=== PATIENT | female | born 1960 | race African-American/Black ===

== ENCOUNTER 2016-08-23 20:50 | Emergency (ER) | payer BC ==
[~2016-08-23] VITALS: Ht 160 cm; Wt 141.5 kg
--- NOTE | ~2016-08-23 | EKG ---
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
[~2016-08-23 20:50] MED LIST: FLEXERIL PO; NOHOMEMEDICATIONS; PERCOCET 5-3251 EACH PO
[2016-08-23] MEDS ORDERED: COZAAR 50 MG TA50 M2 PO (20:57)
[2016-08-23] MEDS ORDERED: METFORMIN HCL500 MG PO (20:58)
[2016-08-23] MEDS ORDERED: LIPITOR10 MG PO (21:03)
[2016-08-23 21:10] LABS: URINE BILIRUBIN NEGATIVE (Negative); URINE BLOOD 2+ (Negative); URINE COLOR YELLOW; URINE GLUCOSE-RANDOM* 2+ (Negative); URINE KETONES TRACE (Negative); URINE LEUKOCYTES-REFLEX NEGATIVE (Negative); URINE PROTEIN (DIPSTICK) 1+ (Negative); URINE UROBILINOGEN 0.2 E.U./dl (0.2-1.0)
[2016-08-23 21:15] LABS: ABSOLUTE NEUTROPHILS 6.4 thou/uL (1.4-8.2); EOSINOPHILS 0.6 % (0.0-3.0); HEMOGLOBIN 14.9 gm/dL (12.0-15.0); LYMPHOCYTES 29.7 % (24.0-44.0); MCH 29.8 pg (26.0-34.0); MCHC 34.6 g/dL (28.0-37.0); MCV 86.2 fL (80.0-100.0); MONOCYTES 5.5 % (1.0-8.0); PLATELET COUNT 324 thou/uL (150-400); POLYS 63.2 % (36.0-66.0); RBC 4.99 mil/uL (4.20-5.00); RDW 13.5 % (10.5-14.5); WBC 10.2 thou/uL (4.0-11.0)
[2016-08-23 21:17] LABS: MANUAL DIFF NO
[2016-08-23 21:19] LABS: SQUAMOUS >10 Many /LPF (0-3)
[2016-08-23 21:20] LABS: CASTS None Seen /LPF (None Seen); CRYSTALS None Seen /LPF (None Seen); URINE RBC 3-10 Few /HPF (0-2); URINE WBC-REFLEX 0-5 Rare /HPF (0-5)
[2016-08-23 21:25] LABS: ANION GAP 10 mmol/L (7-16); BUN 12 mg/dL (7-18); CALCIUM 9.9 mg/dL (8.5-10.1); CHLORIDE 98 mmol/L (98-107); CO2 25 mmol/L (21-32); CREATININE 1.4 mg/dL (0.6-1.3); GLUCOSE 428 mg/dL (70-99); SODIUM 133 mmol/L (136-145)
[2016-08-23 21:32] LABS: ALKALINE PHOSPHATASE 136 U/L (46-116); SGPT 28 U/L (30-65); TOTAL BILIRUBIN 0.7 mg/dL (<0.1-1.0); TOTAL PROTEIN 8.1 g/dL (6.4-8.2); TROPONIN-I < 0.04 ng/mL (<0.04-0.07)
[2016-08-23 21:40] LABS: ABG COMMENT RN DRAW; ABG SAMPLE TYPE VENOUS; BE(vivo) 1.4 mmol/L (-2 to +3); HCO3 26.7 mmol/L (22.0-26.0); O2(CT) 13.8 mL/dL (15.0-23.0); O2Hb VENOUS 65.7 (65.0-85.0); PCO2 VENOUS 44.7 mmHg (41.0-51.0); PO2 VENOUS 33.9 mmHg (35.0-45.0); STICK SITE LINE; sO2 VENOUS 64.5 % (65.0-85.0); tCO2 28.1 mmol/L (24.0-30.0)
[2016-08-23 21:43] LABS: SGOT 18 U/L (15-37)
[2016-08-24 00:03] VITALS: BP 120/60
== END 2016-08-24 00:12 | disposition home or self-care (01) ==
LOC: ER 20:50
PROVIDERS: Emergency Medicine
DX: R73.9 Hyperglycemia, unspecified (principal); E86.0 Dehydration; Z90.89 Acquired absence of other organs

== ENCOUNTER 2019-02-06 17:48 | Emergency (ER) | payer BC ==
[~2019-02-06] VITALS: Ht 160 cm; Wt 136.1 kg
[~2019-02-06 17:48] MED LIST changes: +COZAAR 50 MG TA50 M2 PO; +LIPITOR10 MG PO; +METFORMIN HCL500 MG PO
[2019-02-06 19:20] LABS: ANION GAP 11 mmol/L (7-16); BUN 14 mg/dL (7-18); CALCIUM 9.6 mg/dL (8.5-10.1); CHLORIDE 102 mmol/L (98-107); CO2 24 mmol/L (21-32); CREATININE 0.9 mg/dL (0.6-1.0); GLUCOSE 87 mg/dL (74-106); POTASSIUM 4.8 mmol/L (3.5-5.1); SODIUM 137 mmol/L (136-145)
[2019-02-06 19:30] LABS: ALBUMIN 4.1 g/dL (3.4-5.0); MAGNESIUM 2.1 mg/dL (1.8-2.4); SGOT 21 U/L (15-37); SGPT 22 U/L (30-65); TOTAL BILIRUBIN 1.1 mg/dL (<0.1-1.0); TOTAL PROTEIN 7.7 g/dL (6.4-8.2); TROPONIN-I <0.06 ng/mL (<0.06)
[2019-02-06 22:24] LABS: ABSOLUTE NEUTROPHILS 4.3 thou/uL (1.4-8.2); BASOPHILS 0.6 % (0.0-2.0); EOSINOPHILS 1.1 % (0.0-3.0); HEMATOCRIT 41.6 % (37.0-47.0); HEMOGLOBIN 13.6 gm/dL (12.0-15.0); LYMPHOCYTES 28.6 % (24.0-44.0); MCH 29.6 pg (26.0-34.0); MCHC 32.7 g/dL (28.0-37.0); MCV 90.5 fL (80.0-100.0); MONOCYTES 7.9 % (1.0-8.0); PLATELET COUNT 283 thou/uL (150-400); POLYS 61.8 % (36.0-66.0); RBC 4.59 mil/uL (4.20-5.00); RDW 13.8 % (10.5-14.5)
[2019-02-06 22:54] VITALS: BP 137/72
--- NOTE | 2019-02-07 08:56 | EKG ---
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 : 1960 Requested By: Fela Fang Order Number: [id number] MD: Carroll Flores Measurements Intervals [place] Rate: 81 P: 49 TN: 148 QRS: 50 QRSD: 103 T: 3 QT: 392 QTc: 455 Interpretive Statements Sinus rhythm Abnormal R-wave progression, late transition Compared to ECG 08/23/2016 21:24:59 No significant changes Electronically Signed On 02-07-2019 8:56:07 CDT by Carroll Flores [email or web address] ��������������������������������������������� <ELECTRONICALLY SIGNED> ���������������������������������������� By: Carroll Flores MD, [facility] ��������������������������������������������� 02/07/19 0856 51 51 Carroll Flores MD, [facility] /EPI
--- NOTE | 2019-02-07 08:59 | EKG ---
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 : 1960 Requested By: Chavez Matson Order Number: [id number] MD: Carroll Flores Measurements Intervals [place] Rate: 65 P: 47 [place]: 173 QRS: -15 QRSD: 113 T: 7 QT: 419 QTc: 436 Interpretive Statements Sinus rhythm Poor R wave progression RSR' in V1 or V2, right VCD Compared to ECG 08/23/2016 21:24:59 No significant change was found Electronically Signed On 02-07-2019 8:59:33 CDT by Carroll Flores [email or web address] ��������������������������������������������� <ELECTRONICALLY SIGNED> ���������������������������������������� By: Carroll Flores MD, [facility] ��������������������������������������������� 02/07/19 0859 05 Carroll Flores MD, [facility] /EPI
== END 2019-02-06 22:56 | disposition home or self-care (01) ==
LOC: ER 17:48
PROVIDERS: Emergency Medicine
DX: R07.89 Other chest pain (principal); I10 Essential (primary) hypertension; E11.9 Type 2 diabetes mellitus without complications; Z90.49 Acquired absence of other specified parts of digestive tract